=== PATIENT | female | born 2000 | race Caucasian/White ===

== ENCOUNTER 2019-09-22 21:30 | Emergency (ER) | payer MEDICAID, SELFPAY ==
[2019-09-22 21:35] VITALS: BP 125/106; PULSE 81; RESP 19; TEMP 36.5; O2SAT 97
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
== END 2019-09-22 22:08 | disposition home or self-care (01) ==
PROVIDERS: Emergency Provider Physician Assistant; PCP Family Medicine
DX: Z32.00 Encounter for pregnancy test, result unknown (principal); Z32.02 Encounter for pregnancy test, result negative
CPT/HCPCS: 99282

== ENCOUNTER 2019-12-11 19:09 | Emergency (ER) | payer MEDICAID, SELFPAY ==
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
[2019-12-11 19:24] VITALS: BP 142/89; PULSE 69; RESP 16; TEMP 36.6; O2SAT 99
[2019-12-11 20:03] LABS: TSH (W/Ref FT4) 1.63 uIU/mL (0.36-3.74)
[2019-12-11 20:08] VITALS: BP 142/89; PULSE 69; RESP 16; TEMP 36.6; O2SAT 99
--- NOTE | 2019-12-12 06:15 | NUR.NOTE ---
REFERRAL FAXED TO [facility] FOR FOLLOW UP CARE REGARDING VISIT. Nursing Note:
== END 2019-12-11 20:10 | disposition home or self-care (01) ==
PROVIDERS: Emergency Provider Student in an Organized Health Care Education/Training Program; PCP Family Medicine
DX: B35.8 Other dermatophytoses (principal); E07.9 Disorder of thyroid, unspecified; Z33.1 Pregnant state, incidental; F84.0 Autistic disorder; L29.9 Pruritus, unspecified
CPT/HCPCS: 36415; 81025; 99283; 84443

== ENCOUNTER 2020-01-06 23:18 | Inpatient (IN) | payer MEDICAID, SELFPAY ==
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
[2020-01-06 23:32] VITALS: BP 120/67; PULSE 88; RESP 18; TEMP 36.4; O2SAT 99
--- NOTE | 2020-01-07 01:00 | RT.EKG_ITS ---
APPROVED REPORT Exam: Resting ECG Patient Location: E HR:63 bpm ECG Measurements Heart Rate 63 AXIS OK 147 P 62 QRSd 103 QRS 69 QT 383 T 39 QTc 393 Conclusion Sinus rhythm...normal P axis, V-rate 60- 99 Normal Electrocardiogram
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
[2020-01-07 01:17] LABS: Abs Immature Grans 0.05 10^3/uL (0.0-0.06); Absolute Basophil Count 0.06 10^3/uL (0.0-0.2); Absolute Monocyte Count 1.04 10^3/uL (0.1-0.8); Basophils % 0.4; Eosinophils % 0.9; HCT 36.4 % (36.0-46.0); HGB 12.3 g/dL (11.2-15.7); Immature Grans % 0.3; Lymphocytes % 20.8; MCH 29.1 pg (27.0-33.0); MCHC 33.8 % (32.0-36.0); MCV 86.3 fL (80-95); MPV 9.8 fL (8.0-11.0); Neutrophils % 70.6; Nucleated RBC 0 %; Platelet Count 293 10^3/uL (130-400); RBC 4.22 10^6/uL (3.93-5.22); RDW 12.1 % (11.7-14.6); RDW-SD 38.3 fL; WBC 14.88 10^3/uL (4.4-10.8)
[2020-01-07 01:25] LABS: Absolute Eosinophil Count 0.13 10^3/uL (0.0-0.7); Absolute Neutrophil Count 10.51 10^3/uL (1.2-6.7)
[2020-01-07 01:39] LABS: Bilirubin Negative (Negative); Blood Negative (Negative); Clarity Sl Cloudy (Clear); Glucose Negative (Negative); Ketones Negative (Negative); Leukocyte Esterase Negative (Negative); Nitrite Negative (Negative); Specific Gravity 1.025 (1.005-1.025); Urobilinogen 0.2 EU/dL (Up TO 0.2)
[2020-01-07 01:41] LABS: ALT 15 U/L (14-59); AST 11 U/L (15-37); Albumin 3.9 g/dL (3.4-5.0); Alkaline Phosphatase 48 U/L (46-116); Anion Gap 10.4 mmol/L (3-11); BUN 7 mg/dL (7-18); Bilirubin, Total 0.4 mg/dL (0.2-1.0); CO2 24.6 mmol/L (21.0-32.0); CREATININE 0.63 mg/dL (0.55-1.02); Calcium 9.4 mg/dL (8.5-10.1); Chloride 102 mmol/L (98-107); Glucose 92 mg/dL (74-106); Potassium 3.7 mmol/L (3.5-5.1); Sodium 137 mmol/L (136-145); TSH 1.48 uIU/mL (0.36-3.74); Total Protein 7.7 g/dL (6.4-8.2)
[2020-01-07 01:43] LABS: Salicylate < 2.8 mg/dL (2.8-20.0)
[2020-01-07 01:51] LABS: Acetaminophen < 2 ug/mL (10-30); ETHANOL BLOOD < 3.0 mg/dL (<3)
[2020-01-07 01:58] LABS: *AMPHETAMINES SCREEN URINE Negative (Negative); *BARBITURATES SCREEN URINE Negative (Negative); *BENZODIAZEPINES SCREEN URINE Negative (Negative); Cannabinoids THC POSITIVE (Negative); Cocaine Screen,Urine Negative (Negative); METHADONE URINE SCREEN Negative (Negative); OPIATES URINE SCREEN Negative (Negative)
[2020-01-07 02:03] LABS: Tricyclic Antidepressants Negative (Negative)
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
--- NOTE | 2020-01-07 02:13 | NUR.NOTE ---
Nursing Note: Care ManagementEnid returned hospital page. Will call mental health to discuss inpatient admission criteria
--- NOTE | 2020-01-07 02:34 | NUR.NOTE ---
Nursing Note: Mother called and spoke with this RN after mom was contacted by regarding patient coming home. Mother states that currently she does not feel that her residence is the safest place for this patient tonight and feels that patient is safer in the hospital until placement is found. Nursing Superviser, care management and mental health aware. Per Care Managment and hospital molding supervisor will cancel hospital admission currently and re-assess situation in the morning.
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
--- NOTE | 2020-01-07 09:01 | DI.US_ITS ---
EXAM: US OB 1ST TRIMESTER CLINICAL HISTORY: lower abd pain, 1st tri , r/o ectopic TECHNIQUE: Ultrasound performed using standard protocol. COMPARISON: No exams were available for comparison FINDINGS: Ob ultrasound was performed utilizing 1st trimester protocol utilizing transabdominal and transvagina l scanning. There is a single viable intrauterine gestation in a normal appearing gestational sac, c rown-rump length measurements are consistent with gestational age of 9 weeks 1 day and EDC of 021. heart rate is noted at 169 BPM. The ovaries are unremarkable in appearance. No fluid identified in the cul-de-sac. IMPRESSION: Single viable 9 week 1 day gestation. DATA REPOSITORY:
--- NOTE | 2020-01-07 10:00 | NUR.NOTE ---
1000 patient has gone to DI for an ultrasound
--- NOTE | 2020-01-07 11:32 | PDOC.ERCMPRO ---
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 This morning, Amparo reports suicidal ideation (SI) and rates her SI as a 5 on a scale of 1 to 10. She recently learned she is and admits to feeling overwhelmed and to engaging in cutting behaviors to try and relieve her stress. Amparo reports having been psychiatrically hospitalized in the past and says those hospitalizations were helpful in stabilizing her mood. She further reports being afraid she will act on her SI if she returns home and is asking for a voluntary placement. Amparo met with Poppy [facility] Crisis Screener, this morning for a re-evaluation. She was found to meet criteria for a voluntary hospitalization. Referrals were sent to [facility] and [facility] for review. Amparo will remain at [facility] while [facility] continues to seek placement for her. VOLUNTARY FOR INPATIENT PSYCHIATRIC STABILIZATION. Patient is appropriate in all interactions since arriving at [facility]; Pt has demonstrated appropriate coping and communication skills, has articulated her needs and concerns and is fully engaged during staff interactions. Safety plan has been established with patient, and care team, to adhere to patient goals, identify restrictions based on behavioral status, address nutrition, and determine allowed personal belongings, tools for hygiene and personal care. Determine level of activity including ambulation, level of supervision, visitors, and determine privileges based on behaviors and level of engagement by pt. SAFETY PLAN: 1. Will remain on suicide precautions and in paper clothes 2. Will remain in room under direct supervision of one-on-one staff at all times provided by CPSO, FREDERICK, MRI TECH wire coating machine operator. 3. May have paper cups, plates, finger foods as well as a cardboard spoon with which to eat meals. 4. Follow [facility] Management of the Admitted Behavioral Health Patient policy. 5. Comfort bath system only while in the ED. Patient will be allowed to shower with supervision if moved to Med/Surg. 6. No personal belongings. 7. Visitors-No visitors at this time. 8. Activities: Soft tip markers, paper, coloring books, television if available, and other activities at nursing discretion. 9. Bathroom privileges: While in the ED, must be accompanied by staff. If patient is moved to Med/Surg, she will be allowed to use the bathroom in her room without supervision. 10. Phone: No phone privileges at this time. 11. Due to VOLUNTARY status, if patient wishes to leave [facility], the [facility] prop worker must be contacted to re-evaluate patient prior to patient exiting the building. Patient is currently voluntarily at [facility] and seeking inpatient admission when a bed becomes available. [facility] Frontline Applications Development Consultant will continue seeking placement. Please contact the [employer] [facility] Specialist Healthcare Sales Representative ([phone]) and [facility] Applications Development Consultant ([phone]) for any needed changes in the Safety Plan. Safety plan has been provided to interdepartmental care team.
[2020-01-07 11:41] VITALS: BP 105/67; PULSE 65; RESP 20; TEMP 37.1; O2SAT 98
[2020-01-07 12:40] VITALS: BP 105/62; PULSE 65; RESP 20; TEMP 37.1; O2SAT 98
[2020-01-07 12:53] LABS: COVID-19 RT-PCR UVMMC Result Negative (Negative)
[2020-01-07 13:26] VITALS: BP 105/69; PULSE 67; RESP 16; TEMP 36.8; O2SAT 99
[2020-01-07 13:58] VITALS: BP 105/68; PULSE 67; RESP 16; TEMP 36.8; O2SAT 99
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
--- NOTE | 2020-01-07 16:53 | PDOC.MHCN ---
Date of service: 01/07/20 Time of Service: 16:53 Mental Health Crisis Note Presenting Issue How did you arrive at the ED and why did you come: Amparo arrived at the ER early this am seeking a voluntary admission. Precipitating Factors Amparo reports that she feels safe in the hospital but she worries about when she leaves. She reports and increase in urges to self harm and self harming acts. She rated her SI at a 5 on a sclae of 0-10. Disposition BEHAVIOR: Amparo is quiet and very open and forthcoming about her struggles. She engaged well in the assessment process. She has not been a behaviour problem since coming to the ER. EYE CONTACT: Amparo made good and appropriate eye contact. MOOD: Amparo presents as depressed. AFFECT: Amparo's affect is flat. APPETITE: Amparo reports that her appetite is poor but she has been making an effort to eat knowing she is . SLEEP(trouble falling/staying asleep: She reported and increase in need for sleep. Plan Amparo will be admitted and [facility] will continue to seek placement. Signature Clinician's Name/Title: Poppy Blackwood MS, [facility] Emergency Services Clinician
[2020-01-07 20:58] VITALS: BP 130/88; PULSE 65; RESP 18; TEMP 37.5; O2SAT 97
[2020-01-08 08:08] VITALS: BP 109/71; PULSE 72; RESP 17; TEMP 36.9; O2SAT 98
[2020-01-08] MEDS: Calcium Carbonate *TUMS* 500 MG CHEW 1000 MG PO (08:55)
[2020-01-08] MEDS: Ondansetron O.D.T. 4 MG TABEF PO (11:05)
[2020-01-08] MEDS: Prenatal Multivitamin w/CA,FE TAB 1 TAB PO (12:20)
--- NOTE | 2020-01-08 14:32 | CMPROGNOTE_ITS ---
- If Service Date Differs Date of service: 01/08/20 Time of Service: 14:32 Care Management Progress Note S/O: Amparo was sitting up in bed when CM met with her. CM facilitated a zoom meeting with Amparo and Divina [facility]. Amparo was very forthcoming with details of her circumstances leading up to this hospitalization with Divina and MORTEZA. She stated that she feels suicidal if she thinks she will be discharged back in the community, but she feels safe at [facility]. She reported that she has been hospital ized before and it was helpful to stabilize her mood. She reported feeling anxious and scared regarding her , but she did state that she wants to keep her baby. She reported that she does not feel safe going back to live with her boyfriend, but she is agreeable to go back to her parents house after hospitalization while awaiting a bed at a usp. MORTEZA called her mother, Sagrario, at Amparo's request, to check in on her dog, Bhavik. Sagrario stated that her dog misses her but is doing well. Referrals were sent to [facility] and [facility], both are currently considering her for admission. [facility] called and spoke with Amparo regarding her . MORTEZA was paged to talk to Amparo again after this phone interaction, as she was confused about the conversation. MORTEZA clarified that [facility] is still considering her, but had reservations d/t her being , as they are not a medical facility. CM will continue to follow and support discharge planning considerations. A: Amparo is a 19 year old female admitted to [facility] on 01/06/20 with Depression, SI. P: Referrals have been sent to and [facility], who are both considering her for psychiatric inpatient hospitalization. Amparo is voluntary and willing to go to any facility that will accept her. Once accepted, she will transport via [facility], coordinated by MORTEZA. CM will continue to follow up on referrals and support patient, staff, and discharge planning considerations.
--- NOTE | 2020-01-08 14:47 | CMSP_ITS ---
- If Service Date Differs Date of service: 01/08/20 Time of Service: 14:47 Care Management Safety Plan VOLUNTARY FOR INPATIENT PSYCHIATRIC STABILIZATION. Patient is appropriate in all interactions since arriving at [facility]; Pt has demonstrated appropriate coping and communication skills, has articulated her needs and concerns and is fully engaged during staff interactions. Safety plan has been established with patient, and care team, to adhere to patient goals, identify restrictions based on behavioral status, address nutrition, and determine allowed personal belongings, tools for hygiene and personal care. Determine level of activity including ambulation, level of supervision, visitors, and determine privileges based on behaviors and level of engagement by pt. SAFETY PLAN: 1. Will remain on suicide precautions and in paper clothes 2. Will remain in room under direct supervision of one-on-one staff at all times provided by [employer], FREDERICK, [employer] economic development director. 3. May have paper cups, plates, finger foods as well as a cardboard spoon with which to eat meals. 4. Follow [facility] Management of the Admitted Behavioral Health Patient policy. 5. Shower allowed, with supervision, at RN discretion. 6. No personal belongings. 7. Visitors-No visitors at this time. 8. Activities: Soft tip markers, paper, coloring books, television if available, and other activities at nursing discretion. 9. Bathroom privileges: allowed to use the bathroom in her room without supervision. 10. Phone: Supervised calls at RN discretion. 11. Due to VOLUNTARY status, if patient wishes to leave [facility], the [facility] bottle line worker must be contacted to re-evaluate patient prior to patient exiting the building. Patient is currently voluntarily at [facility] and seeking inpatient admission when a bed becomes available. [facility] Frontline Appellate Law Clerk will continue seeking placement. Please contact the Claim Processor [employer] Pressman ([phone]) and [facility] Appellate Law Clerk ([phone]) for any needed changes in the Safety Plan. Safety plan has been provided to interdepartmental care team.
--- NOTE | 2020-01-08 15:30 | PGE_ITS ---
Date of Service Date of service: 01/08/20 Time of Service: 15:30 Assessment and Plan Assessment and plan (1) Depression with suicidal ideation: Status: Acute Assessment and plan: Not on medication at this time. She has been medically cleared and will be referred to inpatient psychiatric facility for treatment of her depression and suicidal ideation. She is voluntary. She con tinues to feel unsafe for discharge. She has a behavioral safety plan, maintain suicide precautions with 1:1 patient observer. She has been seen by mental health. Transfer to psychiatric facility when a bed is available. (2) : Status: Acute Assessment and plan: Approximately 9 weeks. She has not been seen by OB yet. She had an appointment scheduled. She will follow up with OB as outpatient. Qualifiers: Weeks of gestation: unspecified Qualified Code(s): Z34.90 - Encounter for supervision of normal , unspecified, unspecified trimester (3) Thyroid dysfunction: Status: Acute Assessment and plan: TSH normal. (4) Nausea & vomiting: Status: Acute Assessment and plan: Zofran PRN. (5) Discharge planning issues: Status: Acute Assessment and plan: Transfer to psychiatric facility once accepted and bed is available. This case was discussed with Dr. Thakur who is in agreement. Subjective Subjective Interval history since last seen: Continues to have thoughts of self-harm. Feels safe being in the hospital, but does not feel that she would be safe to be discharged. She had plans to cut herself and not stop until she was bleeding profusely. She is looking forward to being hospitalized at a psychiatric facility for stabilization. She does not want to return to living with her boyfriend because he has his own mental health issues and they trigger each other. She is hoping to eventually be discharged to a supportive home for mothers with mental illness. She reports being seen by an healthcare specialist in [place], [place] who stated that she has schizophrenia, bipolar and is on the autism spectrum, however, these are not formal diagnoses. Amparo reports a poor appetite, she has to force herself to eat. She is and wants her baby to be healthy. She has been nauseated and vomiting. Exam Narrative Exam Narrative: General: 19 year old female, appears stated age, awake and alert, sitting up in bed, pleasant and talkative. Speech is articulate and appropriate. HEENT: normocephalic, atraumatic, extensive acne over cheeks and chin, pupils equal and round, mucous membranes moist. Neck: supple. Cardiovascular: heart has a regular rate and rhythm, no murmur apprecaited. Respiratory: respirations appear even and unlabored, lung sounds clear bilaterally. GI: abdomen does not appear gravid, abdomen soft, nontender on palpation, +BS. Extremities: Scars from previous cutting, L>R. no edema. Objective Last Vital Signs Temp 36.9 C 01/08/20 08:08 Pulse 72 01/08/20 08:08 Resp 17 01/08/20 08:08 BP 109/71 01/08/20 08:08 Pulse Ox 98 01/08/20 08:08
[2020-01-08] MEDS: Acetaminophen 500 MG TAB 1000 MG PO (17:20)
[2020-01-08 17:40] VITALS: BP 107/68; PULSE 66; RESP 17; TEMP 36.6; O2SAT 98
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
--- NOTE | 2020-01-08 18:00 | NUR.NOTE ---
Nursing Note: [facility] Reported no further questions.
[2020-01-08 20:29] VITALS: BP 119/80; PULSE 75; RESP 17; TEMP 36.1; O2SAT 99
[2020-01-09 07:50] VITALS: BP 123/70; PULSE 81; RESP 18; TEMP 36.7; O2SAT 98
[2020-01-09] MEDS: Ondansetron O.D.T. 4 MG TABEF PO (07:50)
== END 2020-01-09 07:55 | disposition short-term general hospital (02) | DRG 832 ==
LOC: ER 01-07 11:46 → MS 01-07 12:53
PROVIDERS: Emergency Medicine; Admitting Provider Internal Medicine; Emergency Provider Physician Assistant; Visit Provider Internal Medicine
DX: O99.341 Other mental disorders complicating pregnancy, first trimester (principal); R45.851 Suicidal ideations; O99.281 Endocrine, nutritional and metabolic diseases complicating pregnancy, first trimester; F32.9 Major depressive disorder, single episode, unspecified; E07.9 Disorder of thyroid, unspecified; O21.9 Vomiting of pregnancy, unspecified; Z3A.09 9 weeks gestation of pregnancy
CPT/HCPCS: 36415; 80053; 80307; 81025; 90686; 93005; 99222; 99232; 99239; 99285; U0003; 76801; 80320; 80329; 81003; 84443; 84702; 85025; 93010; 99284

== ENCOUNTER 2020-01-26 14:52 | Outpatient (CLI) | payer MEDICAID, SELFPAY ==
[2020-01-26 15:32] LABS: Kit/Specimen SENT
[2020-01-26 15:40] LABS: Abs Immature Grans 0.04 10^3/uL (0.0-0.06); Absolute Basophil Count 0.04 10^3/uL (0.0-0.2); Absolute Eosinophil Count 0.08 10^3/uL (0.0-0.7); Absolute Lymphocyte Count 2.97 10^3/uL (1.2-3.4); Absolute Monocyte Count 0.96 10^3/uL (0.1-0.8); Absolute Neutrophil Count 8.83 10^3/uL (1.2-6.7); Basophils % 0.3; Eosinophils % 0.6; HCT 35.2 % (36.0-46.0); HGB 12.2 g/dL (11.2-15.7); Immature Grans % 0.3; MCH 29.9 pg (27.0-33.0); MCHC 34.7 % (32.0-36.0); MCV 86.3 fL (80-95); MPV 9.9 fL (8.0-11.0); Monocytes % 7.4; Neutrophils % 68.4; Nucleated RBC 0 %; Platelet Count 282 10^3/uL (130-400); RBC 4.08 10^6/uL (3.93-5.22); RDW 12.6 % (11.7-14.6); RDW-SD 39.8 fL; WBC 12.91 10^3/uL (4.4-10.8)
[2020-01-27 09:35] LABS: Hepatitis B Surface Ag Negative (Negative)
[2020-01-27 10:17] LABS: HIV-1/2 Ag & Ab Screen Negative (Negative)
[2020-01-27 10:28] LABS: Hepatitis C Ab w Rflx HCV PCR Negative (Negative)
[2020-01-27 10:42] LABS: Varicella IgG Antibody Negative (See Note)
[2020-01-27 10:46] LABS: Rubella IgG Ab (UVM) Positive (See Note)
[2020-01-28 10:50] LABS: Syphilis Total Ab w/Reflex Nonreactive (Nonreactive)
[2020-02-04 18:17] LABS: Result Summary NEGATIVE; Specimen WB Whole Blood
== END 2020-01-26 15:12 ==
PROVIDERS: Visit Provider Advanced Practice Midwife
DX: Z34.91 Encounter for supervision of normal pregnancy, unspecified, first trimester (principal); Z36.89 Encounter for other specified antenatal screening; Z11.4 Encounter for screening for human immunodeficiency virus [HIV]; Z11.59 Encounter for screening for other viral diseases; Z01.84 Encounter for antibody response examination
CPT/HCPCS: 36415; 86787; 86803; 86850; 86900; 86901; 87340; 87389; 81220; 84443; 85025; 86762; 86780

== ENCOUNTER 2020-01-26 16:30 | Outpatient (REF) | payer MEDICAID, SELFPAY ==
--- NOTE | 2020-01-26 15:00 | PAPFT_PTH ---
PATIENT: ROSY DANIEL LOC: [facility] U#:[id number] AGE/SX: 19/F ROOM: RE01/26/[address]: Briana Conte : 2000 BED: DIS: 01/26/2020 SPEC #: [id number] RECD: 01/26/20 18:00 STATUS: RACHELE REQ #: [id number] ANDREE: 01/26/20 15:[address]: Briana Conte DEPT: [facility] Cytology RECD BY: Una Frias ENTERED: 01/26/20 18:01 SP TYPE: PAPFT OT DR: None Tissues: 1 - CX/ENDOCX FOR PAP SMEARS Procedures: PAP THIN PREP/UVM Screening Comments: [id number]
[2020-01-26 17:38] LABS: *AMPHETAMINES SCREEN URINE Negative (Negative); *BARBITURATES SCREEN URINE Negative (Negative); *BENZODIAZEPINES SCREEN URINE Negative (Negative); Cannabinoids THC Negative (Negative); Cocaine Screen,Urine Negative (Negative); METHADONE URINE SCREEN Negative (Negative); OPIATES URINE SCREEN Negative (Negative)
[2020-01-26 17:40] LABS: Tricyclic Antidepressants Negative (Negative)
[2020-01-28 14:41] LABS: Chlamydia Result Negative (Negative); GC Result Negative (Negative)
[2020-02-01 11:57] LABS: Buprenorphine Negative; Norbuprenorphine Negative
== END 2020-01-26 16:50 ==
LOC: LBN 16:30
PROVIDERS: Visit Provider Advanced Practice Midwife
DX: Z34.91 Encounter for supervision of normal pregnancy, unspecified, first trimester
CPT/HCPCS: 80307; 87491; 87591; 88142; 87086; 87480; 87510; 87660